=== PATIENT | male | born 1955 ===

== ENCOUNTER 2018-01-01 21:08 | Emergency (ER) | payer OTHER ==
[2018-01-01 21:22] VITALS: RESP 18; TEMP 98; O2SAT 100
--- NOTE | 2018-01-01 21:59 | ED PDOC ---
Lower Extremity Pain/Injury Time Seen by Provider: 01/01/18 21:49 Chief Complaint (Nursing): Lower Extremity Problem/Injury Chief Complaint (Provider): Lower Extremity Problem/Injury History Per: Patient History/Exam Limitations: no limitations Onset/Duration Of Symptoms: Days (x3 weeks) Current Symptoms Are (Timing): Still Present Additional Complaint(s): 62 year old male presents to the ED for evaluation of atraumatic right knee pain onset three weeks ago associated with swelling and radiation of pain into lower leg, worse with movement, especially going upstairs. Patient states he takes Tylenol at home for management of symptoms, but has not taken any today. 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 Otherwise, (-) falls, ( -) history of knee injury, (-) chest pain, (-) shortness of breath (-) calf tenderness (-) pedal edema (-) prolonged immobility (-) abdominal pain (-) N/V/ D. PMD: none provided Past Medical History Reviewed: Historical Data, Nursing Documentation, Vital Signs Vital Signs: Last Vital Signs Temp 98.0 F 01/01/18 21:20 Pulse 87 01/01/18 21:20 Resp 18 01/01/18 21:20 BP 165/94 H 01/01/18 21:20 Pulse Ox 100 01/01/18 21:20 - Medical History PMH: No Chronic Diseases - Surgical History Surgical History: No Surg Hx - Family History Family History: States: Unknown Family Hx - Social History Current smoker - smoking cessation education provided: No Alcohol: None Drugs: Denies - Home Medications Home Medications: Ambulatory Orders Medication Instructions Recorded Acetaminophen [Acetaminophen 8 650 mg PO Q8 PRN #21 tablet.er 01/01/18 Hour] Meloxicam [Mobic] 15 mg PO DAILY PRN #10 tab 01/01/18 - Allergies Allergies/Adverse Reactions: Allergies Allergy/AdvReac Type Severity Reaction Status Date / Time No Known Allergies Allergy Verified 01/01/18 21:20 Review of Systems ROS Statement: Except As Marked, All Systems Reviewed And Found Negative Cardiovascular: Negative for: Chest Pain Respiratory: Negative for: Shortness of Breath Musculoskeletal: Positive for: Leg Pain (right knee pain associated with swelling and radiation into lower leg, worse with ambulating) Physical Exam - Reviewed Nursing Documentation Reviewed: Yes Vital Signs Reviewed: Yes - Physical Exam Comments: GENERAL APPEARANCE: Patient is awake, alert, oriented x 3, in no acute distress. Ambulating in ED with steady gait. SKIN: Warm, dry; (-) cyanosis. NECK: Supple, FROM RIGHT LOWER EXTREMITY: (+) moderate effusion of knee with (+) diffuse tenderness , (-) erythema, (-) ecchymosis to knee. (+) minimal tenderness to proximal calf/ popliteal region, (-) palpable cord, (-) erythema, (-) warmth to calf. Full ROM with pain on flexion. Sensation and capillary refill intact. (+) pulses intact. CHEST AND RESPIRATORY: (-) rales, (-) rhonchi, (-) wheezes; breath sounds equal bilaterally. Respirations even and nonlabored, speaking in full sentences. HEART AND CARDIOVASCULAR: (-) irregularity; (-) murmur, (-) gallop. NEURO AND PSYCH: Mental status as above. Gait steady, speech clear. (-) focal deficit (-) facial asymmetry - Laboratory Results Result Diagrams: 01/01/18 22:45 01/01/18 22:45 - ECG O2 Sat by Pulse Oximetry: 100 (RA) Pulse Ox Interpretation: Normal Medical Decision Making Medical Decision Making: Time: 2149 Initial Impression: Acute knee pain/effusion Initial Plan: --Right knee XR --IV access --CBC --BMP --Uric Acid --D-dimer --PT, PTT --Re-evaluation 2335 XR reviewed: (+) DJD (+) Joint effusion (-) fracture (-) dislocation Patient advised that official radiology read of XR is still pending and will call the patient if there is any discrepancy within 24 hours. Alex bandage ordered and applied by ED staff. NV intact after placement. Labs reviewed CBC unremarkable, H&H stable. No elevation of WBCs. BMP and coag profile unremarkable. D-dimer 348. Age adjusted d-dimer range <600. Patient with low probability of DVT. Patient advised to return in the morning for U/S evaluation as U/S is not available at this time. Repeat BP: 145/83 Repeat HR: 71 2345 On re-evaluation, patient reports improvement of symptoms. On exam, patient remains AAOx3, in no acute distress. On exam, neck is supple, lungs CTA, cardiac RRR, neuro exam shows no focal findings. VSS, stable for discharge. Diagnostic results d/w the patient in great detail. Dx of acute knee pain/ effusion d/w the patient. RICE encouraged. Based on history, exam and diagnostic results plan will be for discharge and return in AM for U/S evaluation to r/o DVT. Advised to take medication as prescribed. Return to the emergency room at any time for any new or worsening symptoms. Patient states he fully agrees with and understands discharge instructions. States that he agrees with the plan and disposition. Verbalized and repeated discharge instructions and plan. I have given the patient opportunity to ask any additional questions. Scribe Attestation: Documented by Mayi Sellers, acting as a scribe for Caroline Portillo PA-C. Provider Scribe Attestation: All medical record entries made by the Scribe were at my direction and personally dictated by me. I have reviewed the chart and agree that the record accurately reflects my personal performance of the history, physical exam, medical decision making, and the department course for this patient. I have also personally directed, reviewed, and agree with the discharge instructions and disposition. Disposition - Clinical Impression Clinical Impression: Knee pain, acute, Knee effusion, Osteoarthritis - Patient ED Disposition Is Patient to be Admitted: No Counseled Patient/Family Regarding: Studies Performed, Diagnosis, Need For Followup, Rx Given - Disposition Disposition: Routine/Home Disposition Time: 23:50 Condition: STABLE Additional Instructions: RETURN TO THE ED TOMORROW MORNING FOR ULTRASOUND EVALUATION TO R/O DVT. REST ICE COMPRESS(BANDAGE) ELEVATE Prescriptions: Acetaminophen [Acetaminophen 8 Hour] 650 mg PO Q8 PRN #21 tablet.er PRN Reason: Pain, Moderate (4-7) Meloxicam [Mobic] 15 mg PO DAILY PRN #10 tab PRN Reason: Pain, Severe (8-10) Instructions: Osteoarthritis (DC), Knee Pain (DC) Forms: [employer] (Faroese) Print Language: RWANDAN - POA Present On Arrival: None Results - Lab Results Lab Results: 01/01/18 01/01/18 01/01/18 22:45 22:45 22:45 WBC 8.2 RBC 4.87 Hgb 15.1 Hct 44.9 MCV 92.2 MCH 31.0 MCHC 33.6 RDW 13.3 Plt Count 170 MPV 7.4 Neut % (Auto) 65.8 Lymph % (Auto) 24.3 Brooke % (Auto) 7.9 Eos % (Auto) 1.2 Baso % (Auto) 0.8 Neut # (Auto) 5.4 Lymph # (Auto) 2.0 Brooke # (Auto) 0.7 Eos # (Auto) 0.1 Baso # (Auto) 0.1 PT 12.8 INR 1.2 APTT 37.1 D-Dimer, Quantitative 348 H Sodium 140 Potassium 3.7 Chloride 105 Carbon Dioxide 24 Anion Gap 15 BUN 14 Creatinine 0.9 Est GFR ( Amer) > 60 Est GFR (Non-Af Amer) > 60 Random Glucose 97 Uric Acid 6.8 Calcium 8.9
[2018-01-01 23:07] LABS: BASO # 0.1 K/uL (0.0-0.2); BASO % 0.8 % (0.0-2.0); EOS # 0.1 K/uL (0.0-0.7); EOS % 1.2 % (0.0-4.0); HEMOGLOBIN 15.1 g/dL (12.0-18.0); LYMPH % 24.3 % (20.0-40.0); MEAN CELL VOLUME 92.2 fl (80.0-94.0); MEAN CORPUSCULAR HGB CONC 33.6 g/dL (33.0-37.0); MEAN PLATELET VOLUME 7.4 fl (7.2-11.7); MONO # 0.7 K/uL (0.0-0.8); MONO % 7.9 % (0.0-10.0); NEUT # 5.4 K/uL (1.8-7.0); NEUT % 65.8 % (50.0-75.0); RBC 4.87 Mil/uL (4.40-5.90); RED CELL DISTRIBUTION WIDTH 13.3 % (11.5-14.5); WHITE BLOOD COUNT 8.2 K/uL (4.8-10.8)
[2018-01-01 23:18] LABS: BLOOD UREA NITROGEN 14 mg/dl (9-20); CALCIUM 8.9 mg/dL (8.4-10.2); GFR AFRICAN-AMERICAN > 60; GFR NON-AFRICAN AMERICAN > 60; URIC ACID 6.8 mg/Dl (3.5-8.5)
[2018-01-01 23:25] LABS: INR 1.2 (0.9-1.2); PARTIAL THROMBOPLASTIN TIME 37.1 Seconds (25.6-37.1); PROTHROMBIN TIME 12.8 Seconds (9.8-13.1)
[2018-01-01 23:56] VITALS: BP 145/83; PULSE 71
--- NOTE | 2018-01-02 10:03 | RAD ---
Date of service: 01/01/2018 PROCEDURE: Right Knee Radiographs. HISTORY: Joint pain COMPARISON: None. FINDINGS: BONES: Normal. No fracture. JOINTS: Mild medial joint space narrowing. Questionable small calcification within the lateral aspect lateral joint space margin ; rule out chondrocalcinosis . Tiny posterior patellar osteophytes are also present JOINT EFFUSION: moderate-sized suprapatellar joint effusion. OTHER FINDINGS: None. IMPRESSION: No evidence of acute displaced fracture nor dislocation. Mild medial joint space narrowing. Questionable small calcification within the lateral aspect lateral joint space margin ; rule out chondrocalcinosis.
== END 2018-01-02 00:07 | disposition home or self-care (01) ==
LOC: H.ER 21:08
DX: M25.561 Pain in right knee (principal); M25.461 Effusion, right knee; M17.11 Unilateral primary osteoarthritis, right knee
CPT/HCPCS: 73562; 80048; 84550; 85025; 85378; 85610; 85730; 96374; 99283; J1885

== ENCOUNTER 2018-01-02 09:31 | Emergency (ER) | payer OTHER ==
--- NOTE | 2018-01-02 10:28 | ED PDOC ---
Lower Extremity Pain/Injury Chief Complaint (Provider): Right Knee pain History Per: Patient History/Exam Limitations: no limitations Onset/Duration Of Symptoms: Days (22) Current Symptoms Are (Timing): Still Present Pain Scale Rating Of: 8 Additional History Per: Patient Additional Complaint(s): Pt is a 62 yo male with no pmh present to ER due to Right Knee pain. Pt state that he had this pain for 22 days, its 8 out of 10, mostly on the medial side of the knee, worsen with walking, and have tried advil and ice with no improvement. Pt came to ER yesterday and did a full workup, for the Knee and they discharged him for a F/U to ER for [facility] U/s to rule out DVT. Pt denies long trip, or working in anything that requiered him to sit for long period of time. Pt denies having fever, Nausea, vomiting, headache, dizziness, chest pain , SOB, abdominal pain, diarrhea, constipation, dysuria or polyuria. PCP none PMH none PSH: none Social : no smoke, no drink, no drugs <Jose Staton - Last Filed: 01/02/18 11:52> <Ty Napoles - Last Filed: 01/05/18 20:15> Chief Complaint (Nursing): Lower Extremity Problem/Injury Past Medical History Vital Signs: Last Vital Signs Temp 98 F 01/02/18 09:43 Pulse 77 01/02/18 09:43 Resp 20 01/02/18 09:43 BP 146/83 01/02/18 09:43 Pulse Ox 96 01/02/18 09:43 - Medical History PMH: No Chronic Diseases - Surgical History Surgical History: No Surg Hx - Family History Family History: States: Unknown Family Hx - Social History Current smoker - smoking cessation education provided: No Ex-Smoker (has not smoked in the last 12 months): No Alcohol: None Drugs: Denies - Immunization History Hx Tetanus Toxoid Vaccination: No Hx Influenza Vaccination: No Hx Pneumococcal Vaccination: No <Jose Staton - Last Filed: 01/02/18 11:52> Vital Signs: Last Vital Signs Temp 98 F 01/02/18 09:43 Pulse 77 01/02/18 09:43 Resp 20 01/02/18 09:43 BP 146/83 01/02/18 09:43 Pulse Ox 96 01/02/18 11:53 <Ty Napoles - Last Filed: 01/05/18 20:15> - Home Medications Home Medications: Ambulatory Orders Medication Instructions Recorded Acetaminophen [Acetaminophen 8 650 mg PO Q8 PRN #21 tablet.er 01/01/18 Hour] Meloxicam [Mobic] 15 mg PO DAILY PRN #10 tab 01/01/18 - Allergies Allergies/Adverse Reactions: Allergies Allergy/AdvReac Type Severity Reaction Status Date / Time No Known Allergies Allergy Verified 01/01/18 21:20 Wells Criteria for PE - Wells Criteria for Pulmonary Embolism Clinical Signs and Symptoms of DVT: No P.E is #1 Diagnosis, or Equally Likely: No Heart Rate >100: No Immobilization at least 3 days;Surgery previous 4 weeks: No Previous, objectively diagnosed PE or DVT: No Hemoptysis: No Malignancy w/treatment within 6 months, or palliative: No Total Score: 0 <Jose Staton - Last Filed: 01/02/18 11:52> Review of Systems ROS Statement: Except As Marked, All Systems Reviewed And Found Negative Constitutional: Negative for: Fever, Chills, Sweats Eyes: Negative for: Pain, Vision Change, Conjunctivae Inflammation Cardiovascular: Negative for: Chest Pain, Palpitations, Orthopnea, Edema, Light Headedness Respiratory: Negative for: Cough, Shortness of Breath, Hemoptysis, SOB with Exertion, Pleuritic Pain Gastrointestinal: Negative for: Nausea, Vomiting, Abdominal Pain, Diarrhea Genitourinary Male: Negative for: Dysuria, Frequency, Incontinence Neurological: Negative for: Weakness, Numbness <Jose Staton - Last Filed: 01/02/18 11:52> Physical Exam - Reviewed Nursing Documentation Reviewed: Yes Vital Signs Reviewed: Yes - Physical Exam Appears: Positive for: Well, Non-toxic, No Acute Distress Head Exam: Positive for: ATRAUMATIC, NORMAL INSPECTION, NORMOCEPHALIC Skin: Positive for: Normal Color, Warm, Dry ENT: Positive for: Normal ENT Inspection Neck: Positive for: Normal Cardiovascular/Chest: Positive for: Regular Rate, Rhythm Respiratory: Positive for: Normal Breath Sounds. Negative for: Accessory Muscle Use, Crackles, Rales, Rhonchi, Stridor, Wheezing Gastrointestinal/Abdominal: Positive for: Normal Exam, Bowel Sounds, Soft Extremity: Positive for: Normal ROM, Other (Knee tenderness on Medial side. ). Negative for: Calf Tenderness Neurologic/Psych: Positive for: Alert, Oriented, Mood/Affect <Jose Staton - Last Filed: 01/02/18 11:52> - ECG O2 Sat by Pulse Oximetry: 96 <Jose Staton - Last Filed: 01/02/18 11:52> - ECG Pulse Ox Interpretation: Normal - Progress ED Course And Treament: Time: 1441 EXTREMITY US RESULTS Patient Name / ID : PRADIP ALBRIGHT / [id number] Exam Date : 01/02/2018 11:05:07 ( Approved ) Study Comment : Sex / Age : M / 62Y Creator : Josr Rubio MD Dictator : Retread Builder : Cd Reactor Operator Head : Josr Rubio MD Approver2 : Report Date : 01/02/2018 14:41:59 My Comment : Date of service: 01/02/2018 PROCEDURE: Right lower extremity venous duplex Doppler. HISTORY: Knee pain/ d-Dimer COMPARISON: None available. TECHNIQUE: Common femoral, superficial femoral, popliteal and posterior tibial veins were evaluated. Flow was assessed with color Doppler, compressibility, assessment of phasic flow and augmentation response. FINDINGS: COMMON FEMORAL VEIN: Unremarkable. SUPERFICIAL FEMORAL VEIN: Unremarkable. POPLITEAL VEIN: Unremarkable. POSTERIOR TIBIAL VEIN: Unremarkable. OTHER FINDINGS: Small popliteal fluid collection measuring 4.3 x 1.4 x 2.3 cm IMPRESSION: No evidence of deep venous thrombosis in the right lower extremity. Small Lucas cyst. I performed the hx and physical exam of the patient and discussed their mgt with the RESIDENT. I reviewed the RESIDENT's NOTE and agree with the assessment and plan of care. pt is doing well otherwise pt/family are made aware of his medical results pt is encouraged outpt f/u pt is encouraged RICE txt pt will be discharged home Re-evaluation Time: 11:30 Condition: Re-examined, Unchanged <Ty Napoles - Last Filed: 01/05/18 20:15> Medical Decision Making Medical Decision Making: Time 10:35 Initial assessment Pt is a 62 yo male with no PMH resent due to Knee pain, that presented yesterday to ER and had a work up for knee pain, was advised to come back to ER today for U/S to rule out DVT Pt is not in acute distress Vitals: WNL Right Knee Xray :no evideance of acute displaced fracture nor dislocation mild medial joint space narrwoing, questionable small calcification within the lateral aspect lateral joint space margin, rule out chondriocalcinosis Labs: WNL except for D-dimer of 348 physical exam : WNL except warmth, tender R knee medially Plan Right Lower extremity U/s Time 11:37 Re-assessment Pt is 62 yo male with no pmh present to ER due to Knee pain Pt is not in acute distress Vitals : WNL R lower extremity U/s is negative dvt, but mild effusion in the right medial knee Plan Discussed result with pt, explained possible diagnosis, and management to alleviate the pain Recommend Pt to follow up with PCP within 2-3 days for extra examination Referral to orthopedic Dr. Gonsalo Swanson Discharge pt with stretcher, and OVIDIO bands <Jose Staton - Last Filed: 01/02/18 11:52> Disposition - Disposition Disposition Time: 12:00 <Jose Staton - Last Filed: 01/02/18 11:52> - Patient ED Disposition Is Patient to be Admitted: No Counseled Patient/Family Regarding: Studies Performed, Diagnosis, Need For Followup, Rx Given - Disposition Disposition: Routine/Home <Ty Napoles - Last Filed: 01/05/18 20:15> - Clinical Impression Clinical Impression: Right medial knee pain, Knee effusion, Osteoarthritis - Disposition Referrals: FAMILY PROVIDER,NO [Primary Care Provider] - Sky Brush III, MD [Staff Provider] - Condition: IMPROVED Instructions: Osteoarthritis, Chronic Knee Pain, Knee Pain Forms: [employer] (Spanish), [facility] (Mauritanian) Print Language: WELSH - PA / WORKERS COMPENSATION ANALYST / Resident Statement MD/DO has reviewed & agrees with the documentation as recorded. <Ty Napoles - Last Filed: 01/05/18 20:15>
[2018-01-02 12:39] VITALS: BP 128/79; PULSE 74; RESP 16; TEMP 98; O2SAT 100
--- NOTE | 2018-01-02 14:43 | US ---
Date of service: 01/02/2018 PROCEDURE: Right lower extremity venous duplex Doppler. HISTORY: Knee pain/ d-Dimer COMPARISON: None available. TECHNIQUE: Common femoral, superficial femoral, popliteal and posterior tibial veins were evaluated. Flow was assessed with color Doppler, compressibility, assessment of phasic flow and augmentation response. FINDINGS: COMMON FEMORAL VEIN: Unremarkable. SUPERFICIAL FEMORAL VEIN: Unremarkable. POPLITEAL VEIN: Unremarkable. POSTERIOR TIBIAL VEIN: Unremarkable. OTHER FINDINGS: Small popliteal fluid collection measuring 4.3 x 1.4 x 2.3 cm IMPRESSION: No evidence of deep venous thrombosis in the right lower extremity. Small Lucas cyst.
== END 2018-01-02 12:39 | disposition home or self-care (01) ==
LOC: SUPCPDRO 09:31 → H.ER 09:31
DX: M25.461 Effusion, right knee (principal); M17.11 Unilateral primary osteoarthritis, right knee; M25.561 Pain in right knee